=== PATIENT | female | born 1975 | race Two or more races ===

== ENCOUNTER 2017-02-02 06:17 | Emergency (ER) | payer OTHER ==
[2017-02-02] MEDS ORDERED: PEPT262T2 PO (06:39)
[2017-02-02] MEDS ORDERED: NS 1,000 ML IV SCH (07:25)
[2017-02-02] MEDS ORDERED: ONDANSETRON 4MG/2ML VIAL (J2405) IV ONE (07:30)
[2017-02-02 07:54] LABS: BASO % 0.2 % (0.0-1.0); EOS # 0.1 10^3/uL (0.0-0.50); EOS % 0.7 % (0.0-3.0); IMMATURE GRANULOCYTE % 0.2 % (0-0); LYMPH # 2.1 10^3/uL (1.5-4.5); LYMPH % 17.4 % (24.0-44.0); MEAN CORPUSCULAR HEMOGLOBIN 29.7 pg (27.0-33.0); MEAN CORPUSCULAR HGB CONC 34.8 g/dl (32.0-36.5); MEAN CORPUSCULAR VOLUME 85.4 fl (80.0-96.0); MONO # 0.7 10^3/uL (0.0-0.8); MONO % 6.1 % (0.0-5.0); NEUTROPHILS # 8.9 10^3/uL (1.8-7.7); NEUTROPHILS % 75.4 % (36.0-66.0); PLATELET COUNT, AUTOMATED 233 10^3/uL (150-450); RED CELL DISTRIBUTION WIDTH 12.3 % (11.5-14.5); WHITE BLOOD COUNT 11.8 10^3/uL (4.0-10.0)
[2017-02-02] MEDS: MORPHINE 4 MG/ML 1ML SYRINGE IV PRN ×2 (07:55→08:59)
[2017-02-02 08:12] LABS: CONTROL LINE HCG INT CTR LINE PRESENT
[2017-02-02 08:20] LABS: ALBUMIN 3.9 GM/DL (3.2-5.2); ALBUMIN/GLOBULIN RATIO 1.22 (1.00-1.93); ALKALINE PHOSPHATASE 76 U/L (45-117); ALT/SGPT 21 U/L (12-78); ANION GAP 7 MEQ/L (8-16); AST/SGOT 18 U/L (7-37); BILIRUBIN,DIRECT 0.2 MG/DL (0.0-0.2); BILIRUBIN,TOTAL 0.9 MG/DL (0.2-1.0); BLOOD UREA NITROGEN 11 MG/DL (7-18); CALCIUM LEVEL 8.6 MG/DL (8.5-10.1); CARBON DIOXIDE LEVEL 24 MEQ/L (21-32); CHLORIDE LEVEL 108 MEQ/L (98-107); CREATININE FOR GFR 0.56 MG/DL (0.55-1.02); GLOMERULAR FILTRATION RATE > 60.0 (>58); GLUCOSE, FASTING 98 MG/DL (70-105); POTASSIUM SERUM 4.2 MEQ/L (3.5-5.1); SODIUM LEVEL 139 MEQ/L (136-145); TOTAL PROTEIN 7.1 GM/DL (6.4-8.2)
[2017-02-02] MEDS ORDERED: ISOVUE-370 76% 100ML VIAL (Q9967) As Ordered ONE (08:39)
--- NOTE | 2017-02-02 09:17 | REP ---
Clinical: Acute abdominal pain. Technique: Axial contrast enhanced images from the lung bases to the pubic symphysis using 100 ml Isovue 370 intravenous contrast material with coronal and sagittal re-formations. Findings: Mural thickening and pericolonic inflammatory stranding with small amount of adjacent free fluid involves the hepatic flexure and is consistent with acute diverticulitis. No bowel obstruction, free air to suggest perforation, or drainable collection/abscess. Remainder of the small large bowel is grossly unremarkable. Scattered diverticula noted. Liver, spleen, pancreas, bilateral adrenal glands and kidneys are normal cholelithiasis noted. Pelvis demonstrates normal bladder and age-appropriate uterus/adnexa. No ascites. Vasculature is unremarkable musculoskeletal structures are intact lung bases are clear. Impression: 1. Acute diverticulitis involving the hepatic flexure and proximal descending colon. No associated bowel obstruction, perforation, or drainable collection/abscess. 2. Cholelithiasis Signed by Kenneth Link MD 02/02/2017 09:08 A
[2017-02-02] MEDS ORDERED: CIPR-249 PO ×2 (09:36→09:37)
[2017-02-02] MEDS ORDERED: FLAG500T PO (09:36)
[2017-02-02] MEDS ORDERED: PERC5TAB12 PO (09:37)
[2017-02-02] MEDS ORDERED: COLA100C5 PO (09:38)
[2017-02-02] MEDS ORDERED: PERCOCET 5MG/325MG TAB PO ONE (09:45)
[2017-02-02 10:11] VITALS: BP 118/87
--- NOTE | 2017-02-03 06:06 | ECGEPIP ---
Stationary ECG Study [facility] - ED Test Date: 2017-02-02 Pat Name: LISA PLUMMER Department: Room: - Gender: F Nursing Technician: HUGO : 1975 Requested By: Luz Funk Order Number: [id number] Reading MD: Art Rehman Measurements Intervals Bernice Rate: 86 P: 63 AR: 131 QRS: 33 QRSD: 93 T: 28 QT: 361 QTc: 433 Interpretive Statements SINUS RHYTHM WITH SINUS ARRHYTHMIA LOW QRS VOLTAGE IN PRECORDIAL LEADS NO PRIORS FOR COMPARISON Electronically Signed On 02-03-2017 6:05:52 EST by Art Rehman
== END 2017-02-02 10:13 | disposition home or self-care (01) ==
LOC: M ED 06:17
DX: K57.92 Diverticulitis of intestine, part unspecified, without perforation or abscess without bleeding (principal)
CPT/HCPCS: 74177; 80048; 80076; 81001; 83690; 84703; 85025; 93005; 96361; 96374; 96375; 96376; 99284; J2405; Q9967